=== PATIENT | male | born 1965 | race Caucasian/White ===

== ENCOUNTER 2017-07-28 11:40 | Inpatient (IN) | payer OTHER ==
[~2017-07-28] VITALS: Ht 170.2 cm; Wt 73.2 kg
[~2017-07-28 11:40] MED LIST: BUPROPION XL150 MG PO; CLONAZEPAM1 MG PO; LITHIUM CARBON300 M1 PO; ZYPREXA5 MG PO
[2017-07-28] MEDS ORDERED: DIVALPROEX SOD500 MG PO (11:49)
[2017-07-28] MEDS ORDERED: BACTRIM DS TAB1 EACH PO (11:50)
[2017-07-28] MEDS ORDERED: ALLOPURINOL100 MG PO (14:50)
--- NOTE | 2017-07-28 14:55 | NUR ---
PT TO FLOOR VIA STRETCHER, ACCOMPANIED BY TSERING, NURSING NET MAKING SUPERVISOR, AND MOTHER ALYSSA. PT ALERT, ORIENTED X 4. REINFORCED THE NEED FOR PT TO CALL FOR ASSISTANCE PRIOR TO ANY SELF TRANSFER ATTEMPTS. PT AGREED. BED ALARM ON.
[2017-07-28] MEDS ORDERED: DEPAKOTE500 MG PO (15:41)
--- NOTE | 2017-07-28 15:45 | NUR ---
PER REPORT FROM ANDREW, EMERGENCY DEPARTMENT RN, PT PULLED OUT LEFT WRIST FIELD START IV IN EMERGENCY DEPARTMENT.
--- NOTE | 2017-07-28 17:21 | EKG ---
[facility] [address] [facility] [address] [place] [address] Signed Sinus tachycardia Left anterior fascicular block Cannot rule out Inferior infarct (masked by fascicular block?) , age undetermined Abnormal ECG No previous ECGs available Confirmed by ROBEL PUGH MD ([id number]) on 07/28/2017 5:21:49 PM Electronically Signed By: ROBEL PUGH MD 07/28/17 1721 PATIENT NAME: ZANDER TEE SANDY Electrocardiogram DATE OF : 61 PHYSICIAN: ROBEL PUGH MD REPORT #: [id number] REPORT IS CONFIDENTIAL AND NOT TO BE RELEASED WITHOUT AUTHORIZATION
--- NOTE | 2017-07-28 17:25 | NUR ---
2 PERSON ASSIST WITH FWW AND GATE BELT TO BSC. PATIENT VERY SHAKY. PATIENT BACK TO BED WITH BED ALARM ON. CALL BUTTON IN REACH. FRESH ICE WATER GIVEN.
--- NOTE | 2017-07-28 17:39 | NUR ---
PT UP TO BEDSIDE COMMODE WITH 2 PERSON ASSIST. PT VERY SHAKY, UNSTEADY, AND REQUIRED MULTIPLE VERBAL CUES TO TRANSFER SAFELY. PT THEN BACK TO BED WITH 2 PERSON ASSIST USING GAIT BELT. BED ALARM ON.
--- NOTE | 2017-07-28 18:16 | NUR ---
PT SHAKING AT REST, WORSENS WITH ACTIVITY. NOTIFIED DR. PUGH OF THIS, CHECKED PT'S BLOOD SUGAR PER DR. PUGH, BG WAS 90. PT HAD EATEN 100% OF DINNER APROXIMATELY [address] PUGH OF THIS. WILL CONTINUE TO MONITOR PT.
--- NOTE | 2017-07-28 19:00 | NUR ---
BEDSIDE SHIFT REPORT RECEIVED FROM EVON RON. PT IS RESTING IN BED, BED ALARM ON. REINOSO IN PLACE, DRAINING FREELY, PT REMINDED NOT TO PULL ON TUBING. PT'S SISTER AT BEDSIDE, WILL CONTINUE TO MONITOR.
--- NOTE | 2017-07-28 19:36 | NUR ---
NOTIFIED BY EVON SANTANA THAT PT IS HAVING LARGE AMOUNTS OF EMESIS, AND HAS A TEMPERATURE OF 102.1. NOTIFIED DR. PUGH, ASKED FOR ORDER FOR ACETAMINOPHEN 650 MG PA X 1. RECIEVED VERBAL ORDER FOR ACETAMINOPHEN 650 MG PA X 1. NOTIFIED PEDRO TRIPP RN OF NEW ORDER, THAT IS AWAITING VERRIFICATION BY PHARMACY.
--- NOTE | 2017-07-28 19:40 | NUR ---
PT STARTED HAVING EMESIS, BEDDING CHANGED, PRN IV ZOFRAN ADMINISTERED. PT ALSO FOUND TO HAVE TEMPERATURE OF 102.1, TYLENOL SUPPOSITORY ADMINISTERED. PT APPEARS CONFUSED, BED ALARM ON FOR SAFETY. MD AWARE OF PT'S CONDITION.
--- NOTE | 2017-07-28 21:25 | NUR ---
ASSESSMENT COMPLETED. PT ALERT/ORIENTED AT THIS TIME, IS NO LONGER SHAKY LIKE EARLIER. DENIES PAIN AND NAUSEA. LUNGS CLEAR, RA. HR REGULAR. BOWEL TONES ACTIVE. REINOSO IN PLACE DRAINING FREELY. IV PATENT, INFUSING WNL. PT HAS SCATTERED ABRASIONS TO HEAD FROM PREVIOUS FALL AT HOME. PT RECENTLY HAD INGROWN TOENAILS REMOVED, PLACED BANDAIDS ON GREAT TOES, PER PT REQUEST. PT HAS BEEN INTERMITTENTLY CONFUSED AND ATTEMPTED TO EXIT BED. SEIZURE PADS PLACED ON SIDE RAILS TO PROTECT PT'S HEAD, BED ALARM IS ON FOR SAFETY. PT IN VIEW OF NURSES' STATION. WILL CONTINUE TO MONITOR.
--- NOTE | 2017-07-28 21:40 | NUR ---
RECHECKED PT'S TEMP: REAMINS AT 102.1, NOTIFIED DR. PUGH, SHE STATED TO WAIT ON GIVING ANY ADDITIONAL TYLENOL AT THIS TIME. PLACED ICE PACKS BEHIND PT'S NECK AND UNDER ARMS, WILL CONTINUE TO MONITOR.
--- NOTE | 2017-07-28 23:55 | NUR ---
PT SLEEPING, NO APPARENT DISTRESS. RR:20, RESPIRATIONS EVEN AND UNLABORED. BED ALARM ON, WILL CONTINUE TO MONITOR.
--- NOTE | 2017-07-29 03:34 | NUR ---
PT AWAKE, APPEARS SHAKY AGAIN. CHECKED TEMPERATURE: 100.1, PRN PO TYLENOL ADMINISTERED. ASSESSMENT COMPLETED. PT REMAINS ORIENTED X4. DENIES PAIN AND NAUSEA. LUNGS REMAINS CLEAR, HR REGULAR, BOWEL TONES ACTIVE. SEIZURE PADS AND BED ALARM ON FOR SAFETY. WILL CONTINUE TO MONITOR.
--- NOTE | 2017-07-29 05:16 | NUR ---
PT SLEPT MAJORITY OF SHIFT. INTERMITTENTLY CONFUSED, OTHER TIMES IS A/O X4. SHAKY AT TIMES. FEVER OFF/ON, PRN TYLENOL ADMINISTERED. SCATTERED ABRASIONS ON HEAD. REINOSO IN PLACE, DRAINING FREELY. IV PATENT, D5 1/2NS @125ML/HR. IV ABX: CLINDAMYCIN AND ROCEPHIN. PT IS IMPULSIVE AND UNSTEADY ON FEET, 2-PA. BED ALARM AND SEIZURE PADS ON BED FOR SAFETY.
--- NOTE | 2017-07-29 07:00 | NUR ---
BEDSIDE HANDOFF REPORT RECEIVED FROM LAP RUNNER RN. PT RESTING IN BED. PT DENIES NEEDS AT THIS TIME.
--- NOTE | 2017-07-29 07:31 | NUR ---
SISTER CALL FOR PT UPDATE. RECEIVED VERBAL OKAY FROM PT TO PROVIDE UPDATE. UPDATE PROVIDED ON FEVERS OVER NIGHT AND ONGOING CONFUSION.
--- NOTE | 2017-07-29 08:45 | NUR ---
PT RESTING IN BED. PT SLIGHTLY CONFUSED, SLOW TO RESPOND, SPPECH INAPPROPRIATE TO CONVERSATION AT TIMES. PT ON ROOM AIR. LUNG SOUNDS CLEAR. IV FLUIDS INFUSING TO R AC AT 125 ML/HR. PT DENIES PAIN. PT CONCERN FOR CONSTIPATIONS, DISCUSSED MEDICATIONS. PT ASSISTED WITH ORDERING BREAKFAST. PT DENIES OTHER NEEDS AT THIS TIME.
--- NOTE | 2017-07-29 09:36 | NUR ---
MED REC COMPLETE WITH MEDICATION REFILL HISTORY.
--- NOTE | 2017-07-29 10:00 | NUR ---
PT VERY RECEPTIVE TO VISIT BUT NOT PRAYER, SAID HE HAD ALREADY SAID HIS PRAYER. VERY SOFT SPOKEN. SAID HIS MU-ISM BEEN AROUND SINCE LATE 900'S
--- NOTE | 2017-07-29 10:34 | NUR ---
Patient had breakfast eating most of his meal, he also performed the ADLs of brushing his teeth and face washing. When entering the room at 930 for medication administration noticed patient was extremely shaky. Patient complained of being cold. Offered heated blankets for the patient. After medications were done vital signs were taken and patients was running a fever of 99.6. Patients vitals were slightly elevated. Will follow up.
--- NOTE | 2017-07-29 10:40 | NUR ---
PT WITH FEVER 102.2, GIVEN TYLENOL. NOTIFIED. VERBAL ORDER TO REPEAT BLOOD CULTURES IF PT SPIKES ANOTHER TEMP.
--- NOTE | 2017-07-29 12:30 | NUR ---
PT RESTING IN BED. PT DENIES PAIN. ON ROOM AIR, LUNG SOUNDS CLEAR. PT TEMP IMPROVING, PT FEELS LESS FEVERISH. IV FLUIDS INFUSING. PT MAX ASSIST X2 TO STAND PIVOT TO BED. REINOSO CATH IN PLACE, DRAINING CLEAR YELLOW URINE. FAMILY AT BEDSIDE, DENIES OTHER NEEDS AT THIS TIME.
--- NOTE | 2017-07-29 15:07 | NUR ---
PT WITH SLIGHT TEMP 100.5, BLOOD PRESSURE 96/63. MD NOTIFIED, ORDERED BLOOD CULTURES DISCUSSED EARLIER. PT RESTING IN BED. PT DENIES NEEDS AT THIS TIME.
--- NOTE | 2017-07-29 17:13 | NUR ---
PT RESTING IN BED. PT DENIES PAIN. PT ON ROOM AIR, LUNG SOUNDS CLEAR. IV FLUIDS INFUSING NS AT 150 ML/HR. PT DENIES NAUSEA. PT WITH MULTIPLE STOOLS THIS EVENING, PLAN TO HOLD MIRALAX. PT WITH REINOSO CATH IN PLACE, DRAINING YELLOW URINE. PT BEING TO CLEAR, CONVERSATION MORE APPROPRIATE TO SITUATION. PT AFEBRILE AT THIS TIME. PT DENIES NEEDS.
--- NOTE | 2017-07-29 18:30 | NUR ---
PT CONTINUES TO BE SLIGHTLY CONFUSED AT TIMES, BED ALARM ON. PT ON ROOM AIR, LUNG SOUNDS CLEAR. PT TOLERATING REGULAR DIET, POOR APPETITE. PT FELT CONSTIPATED THIS AM, RECEIVED MIRALAX, PT NOW WITH MULTIPLE STOOLS THIS EVENING, HOLD MIRALAX. PT WITH FEVER THIS AM, RECEIVED TYLENOL X1, SLIGHT TEMP AGAIN THIS AFTERNOON, REPEAT BLOOD CULTURES DRAWN. PT WITH NS AT 150 ML/HR. PT RECEIVING IV ROCEPHIN AND CLINDAMYCIN. PT UP WITH 2 PA TO BSC/CHAIR. PT WITH REINOSO IN PLACE, QS.
--- NOTE | 2017-07-29 20:00 | NUR ---
RECEIVED REPORT AT 1900. FOUND PT IN BED SLEEPING.
--- NOTE | 2017-07-29 20:53 | NUR ---
PT WAS SHAKY AND HAD TEMPERATURE OF 100.2. ADMINISTERED 2 TABS PO TYLENOL.
--- NOTE | 2017-07-29 22:00 | NUR ---
PT HAD A TEMP OF 100.2, PT ALSO HAS 100-110 HR. TYLENOL PO WAS GIVEN PER ORDER. PT HAD A BM X1 THIS SHIFT, IT WAS RUNNY AND GREEN IN COLOR. PT IS VERY WEAK WHEN TRYING TO STAND. BED ALARM IS ON SINCE PT IS NOT CALLING WHEN WANTING TO GET OUT OF BED. ALL LOBES ARE CLEAR, ABD BOWEL SOUNDS ARE NORMALLY ACTIVE, NO EDEMA NOTED.
--- NOTE | 2017-07-30 00:21 | NUR ---
PT IS SLEEPING AT THIS TIME.
--- NOTE | 2017-07-30 02:30 | NUR ---
ALL LOBES ARE CLEAR. PT IS STILL WEAK. PT IS SLEEPING AGAIN. TEMP WAS 99.5. OTHER V/S ARE WDL. NO NEW PROBLEMS NOTED.
--- NOTE | 2017-07-30 06:10 | NUR ---
AT START OF SHIFT PT HAD A TEMP OF 100.2, PRN TYLENOL WAS GIVEN, AT 0200 TEMP WAS 99.5, AT 0500 TEMP WAS 100.3 AND ANOTHER PRN TYLENOL WAS GIVEN. ALL OTHER V/S ARE WDL. PT OVERALL IS VERY WEAK. PT HAS RUNNY GREEN BM'S X3 THIS SHIFT. ALL LOBES ARE CLEAR ABD SOUNDS ARE PRESENT. NO PERIPHERAL EDEMA NOTED. PT AT TIMES IS ORIENTED X4 OTHER TIMES PT ANSWERS TO QUESTIONS THAT ARE NOT AT ALL THE SUBJECT MATTER.
--- NOTE | 2017-07-30 07:45 | NUR ---
stool sample collected due to increase of loose stool this am and last night
--- NOTE | 2017-07-30 08:01 | NUR ---
rounded with dr. lee. changed bilateral toe bandaids. assessment complete with student jesus.
--- NOTE | 2017-07-30 09:26 | NUR ---
Patient exam was completed with RN. No new abnormalities were noted. Patient has increased alertness compared to yesterday. Appetite has also increased, patient ate about 90% of his breakfast. There were no complaints of pain at this time. Patient is still having diarrhea, compared to yesterday the movements are less frequent but instead of being brown the stool movements are now dark green. Patient also has less difficulty standing but at times will not wait for assistance before attempting to get up.
--- NOTE | 2017-07-30 12:30 | NUR ---
PATIENT REPORTED BODY ACHES AND SHACKING. REQUESTING TYENOL. VITALS TAKEN. ASSISTED FROM CHAIR TO BED. ONLY EATING 25 PERCENT OF LUNCH. TALKING A LOT ABOUT THE GOVERMENT AND NEWS. PARTIENT STILL REDIRECTS.
--- NOTE | 2017-07-30 12:52 | NUR ---
PATIENT WALKED ONE LAP AROUND MED SURG. WITH PHYSICAL THERAPY AND DESI THE STUDENT FOLLOWED THEM WITH A WHEELCHAIR THIS MORNING.
--- NOTE | 2017-07-30 15:40 | NUR ---
vanco continues. patient shaking has improved. temp improved. patient requesting yogurt. will continue to monitor.
--- NOTE | 2017-07-30 16:23 | NUR ---
PATIENT ASSISTED TO THE SHOWER WITH CUTTER OPERATOR. TOLERATING WELL.
--- NOTE | 2017-07-30 16:41 | NUR ---
VITALS TAKEN. TEMP IMPROVED. IS EDUCATION GIVEN. PATIENT TOLERATED SHOWER WELL. NO PAIN AT THIS TIME. NO SHAKING AT THIS TIME.
--- NOTE | 2017-07-30 18:40 | NUR ---
PATIENT DOING WELL THIS MORNING. AMBULATED IN LARSEN. TOLERATED PT. EATING WELL. THIS AFTERNOON PATIENT HAD INCREASE IN TEMP. TYENOL AND ICE PACKS GIVEN. ADDED VANCO TO ANTIBIOTIC REGIMENT. PATIENT TOLERATED WELL. IV FLUIDS CONTINUE TO RUN AT 150MLS. CALLING APPROPRIATLY. SLOW TO RESPOND AT TIMES.
--- NOTE | 2017-07-30 19:00 | NUR ---
KEMAR D/C'D PER NEW ORDER FROM DR. RIOJAS. UA SENT. NEW ORDER FOR CHEST X-RAY. BED ALARM PLACED ON PATIENT.
--- NOTE | 2017-07-30 19:17 | NUR ---
NEEDED HELP WITH SHOWER THIS AFTERNOON.
--- NOTE | 2017-07-30 20:00 | NUR ---
RECEIVED REPORT AT 1900. FOUND PT IN BED ALERT AND ORIENTED. TEMP AT THAT TIME WAS 99.1. PT DENIED PAIN AND ANY OTHER ISSUES.
--- NOTE | 2017-07-30 21:29 | NUR ---
NURSE NOTIFIED RE HEAVENP.
--- NOTE | 2017-07-30 21:41 | NUR ---
WAS INFORMED BY NAILA WAY, THAT PT'S TEMPERATURE WAS 102. DR. RIOJAS WAS AT HIS DESK, INFORMED HIM OF TEMPERATURE AND OF LAST DOSE OF TYLENOL. NEW ORDERS RECEIVED TO ADMINISTER ONE TIME DOSE OF 325MG PO TYLENOL. ADMINISTERED MEDICATION AND INFORMED PT'S PRIMARY RN, JAN. DR. RIOJAS IN TO ASSESS PT AT THIS TIME.
--- NOTE | 2017-07-30 22:00 | NUR ---
AT 2100 TEMP WAS 102.0. MD RIOJAS WAS MADE AWARE TYLENOL PRN AND A ONE TIME DOSE OF TYLENOL PO WAS GIVEN. CHEST X-RAY WAS DONE AFTER START OF SHIFT. OTHER V/S WERE WDL. BILATERALLY LOWERE LOBES ARE DIMINISHED. UPPER LOBES ARE CLEAR, NORMAL BOWEL TONES ARE PRESENT, NO PERIPHERAL EDEMA NOTED. PT HAD NO BM SINCE START OF THIS SHIFT.
--- NOTE | 2017-07-30 22:15 | NUR ---
PATIENT CALLED. ASSISTED STANDING UP BY THE BED TO VOID IN THE URINAL.
--- NOTE | 2017-07-30 22:30 | NUR ---
NEW ABX WERE ORDERED BY MD RIOJAS, INFLUENZA NASAL SWAB WAS DONE AT SENT TO LAB AT 2225. PT AT THIS TIME IS SLEEPING. WILL CONTINUE TO MONITOR.
--- NOTE | 2017-07-30 23:00 | NUR ---
PT VOIDED OVER 400ML
--- NOTE | 2017-07-30 23:31 | NUR ---
TEMP AT THIS TIME IS 98.2. BED ALARM IS BACK ON. PT TRIED TO GET OUT OF BED AGAIN.
--- NOTE | 2017-07-30 23:57 | NUR ---
PT IS SLEEPING AT THIS TIME.
--- NOTE | 2017-07-31 02:32 | NUR ---
PT IS AFEBRILE AT THIS TIME. ALL LOBES ARE CLEAR BUT LOWER LOBES ARE DIMINISHED. NO NEW ISSUES NOTED AT THIS TIME. PT IS BACK IN BED SLEEPING
--- NOTE | 2017-07-31 02:52 | NUR ---
PT HAS NOT VOIDED BETWEEN [id number]. PT STATED THAT HE HAS NO URGE. BLADDER SCAN SHOWED 506ML OF URINE PRESENT. PT AT THIS TIME IS TRYING TO VOID AGAIN. WILL CALL MD RIOJAS IF HE IS UNABLE TO VOID.
--- NOTE | 2017-07-31 03:14 | NUR ---
PT JUST VOIDED 100ML. WILL TRY AGAIN IN AN HOUR.
--- NOTE | 2017-07-31 03:56 | NUR ---
PT VOIDED ANOTHER 200ML. BMX1 WELL. PT IS BACK IN BED.
--- NOTE | 2017-07-31 04:27 | NUR ---
PT IS STILL AFEBRILE, 98.6. HOWEVER, PT IS VISIBLY SHAKING AGAIN. I GAVE HIM A WARM BLANKET.
--- NOTE | 2017-07-31 04:59 | NUR ---
PATIENT CALLED. ASSISTED USING THE URINAL. PATIENT IS SHAKING. WARM BLANKET GIVEN.
--- NOTE | 2017-07-31 05:42 | NUR ---
AT START OF SHIFT TEMP WAS 99. WITHIN A COUPLE OF HOURS HIS TEMP WAS 102.0 EVEN THOUGH PO TYLENOL WAS GIVEN. MD RIOJAS WAS MADE AWARE. CHEST X-RAY WAS DONE. ABX WERE CHANGED AND GIVEN. AT 0200 TEMP WAS 98.5 AND PT HAS REMAINED AFEBRILE SO FAR. REINOSO WAS PULLED JUST PRIOR TO 1900. PT HAD SOME DIFFICULTY VOIDING AT FIRST BUT THIS SEEMS TO NO LONGER BE A PROBLEM. OTHER V/S ARE WDL. PT AT TIMES STILL GETS TREMORS EVEN WHEN AFEBRILE. WARM BLANKETS WERE PROVIDED WHICH SEEMS TO HELP. PT BM'S 3 THIS SHIFT SO FAR. COLOR IS GREEN AND CONSISTENCY IS LOOSE. ALL LOBES ARE CLEAR BUT LOWER LOBES ARE DIMINISHED. NO PERIPHERAL EDEMA NOTED, NO COUGH OR DRAINAGE FROM NOSE NOTED.
--- NOTE | 2017-07-31 06:00 | NUR ---
PT HAS NOT BEEN ABLE TO STOP SHAKING EVEN THOUGH HE IS AFEBRILE. I TOOK HIS BG AND IS WAS 59. 300ML OF ORNAGE JUICE AND TWO PACKS OF LICO CRACKERS WERE GIVEN. WILL RECHECK IN 15MIN AND NOTIFY MD RIOJAS.
--- NOTE | 2017-07-31 06:21 | NUR ---
BG NOW IS 95. CALLING MD RIOJAS NOW.
--- NOTE | 2017-07-31 06:24 | NUR ---
MD RIOJAS AWARE. NO NEW ORDERS RECEIVED.
--- NOTE | 2017-07-31 07:38 | NUR ---
REPORT RECEIVED FROM EVON MONTOYA. PT AWAKE AND USING THE BEDSIDE COMMODE. ONE IV RUNNING AND ONE SL.
--- NOTE | 2017-07-31 10:06 | NUR ---
PT UP TO BEDSIDE COMMODE. REMAINS WEAK AND UNSTEADY. HAD SMALL AMT SOFT STOOL. FAMILY IN ROOM.
--- NOTE | 2017-07-31 10:20 | NUR ---
PT IS SITTING UP ON BED WITH CALL LIGHT IN REACH. PT DID NOT NEED ANYTHING ELSE AT THE MOMENT
--- NOTE | 2017-07-31 11:46 | NUR ---
PT READING A BOOK AND HIS IV REPEATEDLY BEEPING. PT STATES IT IS DRIVING HIM CRAZY US.
--- NOTE | 2017-07-31 13:28 | NUR ---
MOVED PT TO ROOM 109 VIA BED. PT TOLERATED WELL. WILL INFORM FAMILY THEY COME IN TO VISIT. WATER PUMPER IN ROOM TO TRY TO START NEW IV.
--- NOTE | 2017-07-31 15:54 | NUR ---
PT BACK FROM CT REATTCHED TO IVF. PT READING A BOOK AND DENIES CONCERNS.
--- NOTE | 2017-07-31 17:53 | NUR ---
PT HAD LOW GRADE FEVER OF 101 STILL UNKNOWN ORIGIN. CHEST AND ABDOMEN CT BENIGN. USING BEDSIDE COMMODE FOR CONTINUED WEAKNESS. IV STARTED IN LEFT THUMB.
--- NOTE | 2017-07-31 20:00 | NUR ---
RECEIVED REPORT AT 1900. FOUND PT IN BED WATCHING TV. PT STATED THAT HE WAS FEELING GOOD.
--- NOTE | 2017-07-31 22:04 | NUR ---
V/S ARE WDL, PT IS AFEBRILE AT THIS TIME, ALL LOBES ARE CLEAR, NO PERIPHERAL EDEMA NOTED, PT IS NOT SHAKING, STRENGTH IS IMPROVING WELL. PT IS SLEEPING AT THIS TIME.
--- NOTE | 2017-07-31 23:46 | NUR ---
PATIENT GOT UP, BED ALARM WENT OFF. ASSISTED TO USE THE BEDSIDE COMMODE. PATIENT IS BACK IN BED. CALL LIGHT WITHIN REACH. REMINDED TO USE THE CALL LIGHT.
--- NOTE | 2017-08-01 00:06 | NUR ---
PT IS SLEEPING AT THIS TIME.
--- NOTE | 2017-08-01 01:07 | NUR ---
ASSISTED PT TO BATHROOM. PT THEN BECAME SHAKEY AGAIN. I SPOT CHECKED HIS BG AND IT WAS 95.
--- NOTE | 2017-08-01 02:07 | NUR ---
PATIENT CALLED. ASSISTED TO USE THE BEDSIDE COMMODE. PATIENT IS BACK IN BED. CALL LIGHT WITHIN REACH. BED ALARM ON.
--- NOTE | 2017-08-01 03:48 | NUR ---
PATIENT CALLED TO USE THE BEDSIDE COMMODE. PATIENT IS BACK IN BED. CALL LIGHT WITHIN REACH. BED ALARM ON.
--- NOTE | 2017-08-01 03:56 | NUR ---
PT IS RESTING IN BED, ASSESSMENT HAS SHOWED NO CHANGES SINCE START OF SHIFT.
--- NOTE | 2017-08-01 05:08 | NUR ---
PT SO FAR HAS REMAINED AFEBRILE. PT HAD BM'S X2 AND V/S ARE WDL. PT IS ABLE TO WALK TO BATHROOM AND BACK TO BED. PT IS ORIENTED X4, ALL LOBES ARE CLEAR, NO EDEMA NOTED. PT DENIES PAIN. PT SLEPT MOST OF THE NIGHT. NO NEW ISSUES NOTED SO FAR.
--- NOTE | 2017-08-01 05:51 | NUR ---
NURSE NOTIFIED RE HEAVENP.
--- NOTE | 2017-08-01 05:55 | NUR ---
0600 V/S SHOWED A TEMP OF 99.3. 650MG OF PRN TYLENOL WAS GIVEN.
--- NOTE | 2017-08-01 06:23 | NUR ---
LAB MISHANDLED STOOL CULTURE COLLECTED LAST NIGHT. A NOEW STOOL SAMPLE IS NEEDED. CONTAINER IN BATHROOM AND SO IS HAT.
--- NOTE | 2017-08-01 06:43 | NUR ---
SBP WAS 98 WITH MACHINE. MANNUAL BP WAS 92/61. MD RIOJAS CALLED.
--- NOTE | 2017-08-01 07:21 | NUR ---
REPORT RECIEVED FROM EVON DONALDSON. PT SLEPT MOST OF NIGHT. UP TO RESTROOM SEVERAL TIMES. NEED MORE STOOL FOR SAMPLE. PT SLEEPING ATT.
--- NOTE | 2017-08-01 08:15 | NUR ---
AM CARE. FRESH ICE WATER. PICKED UP ROOM. CALL LIGHT IN REACH.
--- NOTE | 2017-08-01 09:48 | NUR ---
PT AWAKE IN BED DID VITELS. FRESH ICE WATER. PT HAS CALL LIGHT IN REACH.
--- NOTE | 2017-08-01 11:42 | NUR ---
PT UP IN SHOWER WITH SEQUENCING MACHINE OPERATOR. HAD ANOTHER BM SENT SAMPLE TO THE LAB.
--- NOTE | 2017-08-01 13:07 | NUR ---
SL PT AND GAVE MORE JUICE AND ICE WATER. PT HAPPY TO NOT BE "HOOKED UP". PT MOTHER CAME OUT AND SAID PT WAS COLD. ASSESSED TEMP, BLOOD SUGAR AND GAVE WARM BLANKET. PT AFEBRILE AND BS WAS 120.
--- NOTE | 2017-08-01 14:11 | NUR ---
PT AWAKE IN CHAIR. HELPED TO BR AND BACK TO BED. GOT HIM SOME APPLE JUICE.
--- NOTE | 2017-08-01 15:46 | NUR ---
PT CALLED FOR A SOUR ACIDY STOMACH. CALLED DR RIOJAS AND HE ORDERED MAALOX. ADMINISTERED TO PT AND ASSISTED TO CHAIR FOR AWHILE.
--- NOTE | 2017-08-01 17:24 | NUR ---
PT HAD A SLIGHT FEVER AGAIN AT DINNER. ADMINISTERED TYLENOL. PT SL AND ON RA. UP TO RESTROOM WITH SBA AND FWW FREQUENTLY. ANOTHER STOOL SAMPLE SENT. WORKED WITH PHYS. THER.
--- NOTE | 2017-08-01 17:49 | NUR ---
PT AWAKE IN CHAIR. FRESH WATER. TOOK TO THE BATHROOM.
--- NOTE | 2017-08-01 19:52 | NUR ---
REPORT RECVD FROM MAX BARNARD. PT IN ROOM, READING IN BED. PT HAS BEEN UP TO BATHROOM WITH FWW AND STANDBY ASSIST. NO FURTHER NEEDS AT THIS TIME, CALL LIGHT IN REACH.
--- NOTE | 2017-08-01 20:28 | NUR ---
USED CALL LIGHT REQUESTING TO USE THE BATHROOM. SBA. PLEASANT AND COOPERATIVE.
--- NOTE | 2017-08-01 20:39 | NUR ---
IN TO SEE PT, PT AWAKE WATCHING TV. ASSESSMENT COMPLETE AND PM MEDICATIONS GIVEN. TEMP OF 99.0 NOTED, WILL MONITOR. SL IN R THUMB, FLUSHES WELL. NO FURTHER NEEDS AT THIS TIME. CALL LIGHT IN REACH.
--- NOTE | 2017-08-01 23:49 | NUR ---
IN TO CHECK ON PT, PT APPEARS TO BE SLEEPING. RR EVEN AND UNLABORED. NO APPARENT DISTRESS NOTED. CALL LIGHT IN REACH.
--- NOTE | 2017-08-02 00:42 | NUR ---
IN TO CHECK ON PT, PT SNORING SOFTLY. RR EVEN AND UNLABORED. NO APPARENT DISTRESS NOTED. CALL LIGHT IN REACH.
--- NOTE | 2017-08-02 02:31 | NUR ---
BED ALARM SOUNDING, IN TO CHECK ON PT. PT IN BED WITH LEGS MOVING OUT OF COVER. PT STATES HE IS HAVING A DREAM. ASSESSMENT COMPLETE. NO FURTHER NEEDS AT THIS TIME. BED ALARM ON, CALL LIGHT IN REACH.
--- NOTE | 2017-08-02 02:56 | NUR ---
BED ALARM SOUNDING, RN IN TO SEE PT. WHEN RN ARRIVED PT UP WITHOUT ASSIST AMBULATING TO BATHROOM. ASSISTED PT TO BATHROOM WITH WALKER. PT ASSISTED BACK TO BED. RENFORCED THE NEED TO CALL FOR HELP AND WAIT FOR STAFF BEFORE GETTING OOB. PT AGREES. WARM BLANKET GIVEN. BED ALARM ON, CALL LIGHT IN REACH.
--- NOTE | 2017-08-02 04:02 | NUR ---
PT CALLED, REQUESTING WARM BLANKET. TEMP CHECKED, 98.1 ORAL. BLANKET GIVEN. NO FURTHER NEEDS AT THIS TIME. CALL LIGHT IN REACH.
--- NOTE | 2017-08-02 05:05 | NUR ---
PT HAD AN UNEVENTFUL SHIFT, SLEPT WELL. PT SL AND ON RA. UP TO BATHROOM WITH STANDBY ASSIST WITH FWW. PT AFIBRILE. LIQUID BM NOTED ON SHIFT. BED ALARM IN PLACE.
--- NOTE | 2017-08-02 05:19 | NUR ---
ASSISTED PATIENT TO THE BATHROOM AND BACK TO BED.
--- NOTE | 2017-08-02 07:56 | NUR ---
PT AWAKE LYING IN BED. C/O PAIN ON HEEL OF RIGHT FOOT. NO OBVIOUS SIGNS OF BREAKDOWN. BLANCHABLE SKIN. ENCOURAGED PATIENT TO SIT UP IN CHAIR TO RELEIVE PRESSURE ON HEELS. BREAKFAST DELIVERED NOW. TOOK SCHEDULED MEDICATION. RIGHT THUMB IV S/L.
--- NOTE | 2017-08-02 08:31 | NUR ---
PATIENT IS EATING BREAKFAST UP IN CHAIR.
--- NOTE | 2017-08-02 13:57 | NUR ---
PT ALERT, SOMEWHAT ORIENTED. MOST OF CONVERSATION SEEMED ON [employer]. SEVERAL TIMES THOUGH HE SEEMED TO LOOSE TRACK SOME. PT DID REQUEST PRAYER, WILL CONTINIE TO FOLLOW
--- NOTE | 2017-08-02 16:16 | NUR ---
FAXED CHART NOTES TO [facility] THIS AM AFTER SPEAKING WITH THE PT ABOUT HAVING TO HAVE SOME EXTENDED REHAB. PT STATES THAT WOULD BE FINE FOR HIM TO DO. HE THINKS [facility] IS GOOD IT [place], SO FAXED FACESHEET, ER NOTES, H AND P, PROG NOTES, MEDS, IMAGING, AND LABS TO THEM. 1105 RECIEVED PHONE CALL REQUESTING LIST OF MEDICATIONS PT WILL BE DC ON. CALLED DR RIOJAS AND HE SAID THE ONES HE IS ON AT HOME. SO FAXED LIST TO T. 1300 TECIEVED A CALL THAT THEY ACCEPTED PT NOW THEY HAVE TO GET INSURANCE AUTH FOR SNF. SO AWAITING AUTH.
--- NOTE | 2017-08-02 16:24 | NUR ---
HELPED PT BACK TO BED FROM BRUSHING HIS TEETH, FILLED HIS ICE WATER, CALL LIGHT IN PLACE
[2017-08-02] MEDS ORDERED: CLONAZEPAM1 MG PO (16:43)
[2017-08-02] MEDS ORDERED: ZYPREXA5 MG PO (16:44)
[2017-08-02] MEDS ORDERED: LOPERAMIDE2 MG PO (16:44)
[2017-08-02] MEDS ORDERED: CULTURELLE1 EAC1 PO (16:44)
--- NOTE | 2017-08-02 16:52 | NUR ---
HELPED PT TO BATHROOM. HE DID FINE. CALL LIGHT CLIPPED TO HIS DRAW SHEET BECAUSE HE LIKES TO SEE IT AND [id number] ITS THERE.
--- NOTE | 2017-08-02 18:15 | NUR ---
SBA TO BATHROOM. BED ALARM. CAN BE IMPULSIVE. DIARRHEA. WORKING WITH PHYSICAL THERAPY. NO MAJOR CHANGES TODAY. APPETITE [employer]IR.
--- NOTE | 2017-08-02 19:15 | NUR ---
REPORT RECVD FROM OTIS BARNARD. PT AWAKE WATCHING TV. ASSISTED PT UP TO BATHROOM WITH FWW. ASSISTED BACK TO BED. PT STEADY ON FEET. NO FURTHER NEEDS AT THIS TIME. BED ALARM ON, CALL LIGHT IN REACH.
--- NOTE | 2017-08-02 20:25 | NUR ---
IN TO SEE PT, PT AWAKE. ASSISTED UP TO BATHROOM STANDBY WITH FWW, PT TOLERATED WELL. ASSESSMENT COMPLETE AND PM MEDICATION GIVEN. NO FURTHER NEEDS AT THIS TIME. BED ALARM ON AND CALL LIGHT IN REACH.
--- NOTE | 2017-08-02 23:19 | NUR ---
IN TO CHECK ON PT, PT IN BED APPEARS TO BE SLEEPING. RR EVEN AND UNLABORED. NO APPARENT DISTRESS NOTED. CALL LIGHT IN PLACE.
--- NOTE | 2017-08-02 23:55 | NUR ---
PT CALLED REQUESTING ASSISTANCE TO BATHROOM. ASSISTED PT TO BATHROOM AND BACK TO BED. PT TOLERATED WELL. BED ALARM ON, CALL LIGHT IN REACH.
--- NOTE | 2017-08-03 02:15 | NUR ---
IN TO CHECK ON PT, PT LYING ON BACK IN BED. APPEARS TO BE SLEEPING. RR EVEN AND UNLABORED. NO APPARENT DISTRESS NOTED. BED ALARM ON, CALL LIGHT IN REACH.
--- NOTE | 2017-08-03 05:02 | NUR ---
PT HAS HAD UNEVENTFUL SHIFT, RESTED WELL. 1 PERSON STANDBY ASSIST WITH FWW. DIARRHEA NOTED ON SHIFT, MD AWARE. 24 G SL IN R THUMB, DIFFICULT TO FLUSH. PT HAS BEEN AFIBRILE, VITALS STABLE. D/C TO WBT TODAY.
--- NOTE | 2017-08-03 08:22 | NUR ---
PT SITTING UP IN BED. NO COMPLAINTS AT THIS TIME. PT HAS BEEN UP TO TOILET AT SHIFT CHANGE THIS MORNING. SBA TO BR. TOOK SCHEDULED MEDS ORDERED. PT WATCHING TELEVISION NOW. ATE 90% OF BREAKFAST. IV INFILTRATED. WILL SEE IF PT NEEDS NEW IV OR NOT.
--- NOTE | 2017-08-03 14:18 | NUR ---
PT WAS DRESSED AND SITTING IN CHAIR WAITING FOR DISCHARGE ORDERS. HE SEEMED PLEASED AND READY TO GO HOME. HE THANKED ME FOR COMING IN-IT APPEARED HIS FAMILY WAS THERE TO TAKE HIM HOME. I EXTENDED A BLESSING TO HIM
== END 2017-08-03 14:40 | DRG 564 ==
LOC: ED 11:40 → MS 14:06
PROVIDERS: ADMIT Internal Medicine
DX: T79.6XXA Traumatic ischemia of muscle, initial encounter (principal); G93.41 Metabolic encephalopathy; R65.11 Systemic inflammatory response syndrome (SIRS) of non-infectious origin with acute organ dysfunction; N17.9 Acute kidney failure, unspecified; K52.1 Toxic gastroenteritis and colitis; W19.XXXA Unspecified fall, initial encounter; T36.95XA Adverse effect of unspecified systemic antibiotic, initial encounter; D69.6 Thrombocytopenia, unspecified; F31.9 Bipolar disorder, unspecified; E79.0 Hyperuricemia without signs of inflammatory arthritis and tophaceous disease; E03.9 Hypothyroidism, unspecified
CPT/HCPCS: 36415; 51702; 51798; 70450; 71010; 71020; 71250; 74176; 80048; 80053; 80164; 81001; 82550; 83605; 85025; 85651; 86140; 87040; 87045; 87046; 87205; 87493; 87502; 93005; 93010; 96361; 96365; 97110; 97116; 97162; 97530; 99285; J0696; J1956; J2405; J3370; J7030; J7042

== ENCOUNTER 2019-11-02 08:24 | Emergency (ER) | payer OTHER ==
[~2019-11-02] VITALS: Ht 170.2 cm; Wt 82.1 kg
[~2019-11-02 08:24] MED LIST changes: +ALLOPURINOL100 MG PO; +BACTRIM DS TAB1 EACH PO; +CULTURELLE1 EAC1 PO; +DEPAKOTE500 MG PO; +DIVALPROEX SOD500 MG PO; +DULCOLAX STOOL100 M1 PO; +LOPERAMIDE2 MG PO
--- OUTSIDE RECORDS SUMMARY | 2019-11-02 08:28 | XMS ---
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 Dequan has no Care Guidelines for this patient. Karmen VISIT COUNT (12 MO.) 1 JOSE G Vega TOTAL 1 NOTE: Visits indicate total known visits. ED/C VISIT TRACKING (12 MO.) 11/02/2019 08:25 JOSE G Alexandra OR TYPE: Emergency COMPLAINT: - POSS STROKE SYMPTOMS INPATIENT VISIT TRACKING (12 MO.) No inpatient visits to display in this time frame [email or web address]
--- NOTE | 2019-11-02 23:44 | EKG ---
[facility] [address] [place] [address] Signed Normal sinus rhythm Left anterior fascicular block Abnormal ECG When compared with ECG of 01-DEC-2018 14:58, No significant change was found Confirmed by PERNELL RIOJAS MD ([id number]) on 11/02/2019 11:43:47 PM Electronically Signed By: PERNELL RIOJAS MD 11/02/19 2344 PATIENT NAME: RANDALZANDER Electrocardiogram DATE OF : 61 PHYSICIAN: PERNELL RIOJAS MD REPORT #: [id number] REPORT IS CONFIDENTIAL AND NOT TO BE RELEASED WITHOUT AUTHORIZATION
== END 2019-11-02 11:33 | disposition home or self-care (01) ==
LOC: ED 08:24
DX: G45.9 Transient cerebral ischemic attack, unspecified (principal); F31.9 Bipolar disorder, unspecified; Z88.8 Allergy status to other drugs, medicaments and biological substances; Z91.018 Allergy to other foods; Z79.899 Other long term (current) drug therapy
CPT/HCPCS: 70450; 80053; 84484; 85025; 93005; 93010; 93880; 99285-25

== ENCOUNTER 2021-12-02 16:51 | Emergency (ER) | payer OTHER ==
[~2021-12-02] VITALS: Ht 172.7 cm; Wt 76.2 kg
[~2021-12-02 16:51] MED LIST changes: +AMOXICILLIN500 MG PO
--- OUTSIDE RECORDS SUMMARY | 2021-12-02 16:54 | XMS ---
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 ERodolfo VISIT COUNT (12 MO.) 1 JOSE G Vega TOTAL 1 NOTE: Visits indicate total known visits. ED/UCC VISIT TRACKING (12 MO.) 12/02/2021 16:52 JOSE G Alexandra OR TYPE: Emergency COMPLAINT: - CONSTIPATION INPATIENT VISIT TRACKING (12 MO.) No inpatient visits to display in this time frame [email or web address]
[2021-12-02] MEDS ORDERED: MAGNESIUM CITR296 ML PO (18:22)
[2021-12-02] MEDS ORDERED: ONDANSETRON ODT8 MG PO (18:27)
== END 2021-12-02 18:40 | disposition home or self-care (01) ==
LOC: ED 16:51
DX: R10.9 Unspecified abdominal pain (principal); Z01.818 Encounter for other preprocedural examination; Z91.010 Allergy to peanuts; Z88.8 Allergy status to other drugs, medicaments and biological substances; Z79.899 Other long term (current) drug therapy
CPT/HCPCS: 74022; 99284-25; A9270

== ENCOUNTER 2021-12-03 05:40 | Day surgery (SDC) | payer OTHER ==
[~2021-12-03] VITALS: Ht 172.7 cm; Wt 76.4 kg
[~2021-12-03 05:40] MED LIST changes: +MAGNESIUM CITR296 ML PO; +ONDANSETRON ODT8 MG PO
--- NOTE | 2021-12-03 07:56 | NUR ---
12/03/21 0756 Angelique Everett 0752-PT TO PACU IN LL POSITION. DOES NOT RESPOND TO VERBAL OR TACTILE STIMULI. BREATHING EASY AND UNLABORED. SPO2 >95% ON 6 L O2 VIA SIMPLE MASK. 0755- PT CONTINUES TO SLEEP IN LL POSITION. BREATHING EASY AND UNLABORED. SPO2 >95% ON 6 L O2 VIA SIMPLE MASK. PT PASSING GAS.
--- NOTE | 2021-12-03 09:24 | OR ---
[facility] [address] [place], [place] [address] Signed DATE OF OPERATION: 12/03/2021 SURGEON: Sandy Arora MD PREOPERATIVE DIAGNOSES: 1. Paternal grandfather with colon cancer. 2. Minimal sigmoid diverticulosis. 3. Minimal internal hemorrhoids. 4. Intermittent episodic diarrhea. POSTOPERATIVE DIAGNOSES: 1. 4 mm polyp at 7 cm. 2. Minimal sigmoid diverticulosis. 3. Minimal internal hemorrhoids. PROCEDURE: Colonoscopy with hot biopsy. ESTIMATED BLOOD LOSS: None. INDICATIONS: Sandy is a 56-year-old gentleman asked to see me for followup colonoscopy. He underwent lower endoscopy with Dr. Igor Veronica in 2009. He had been anemic at that time. He had a little diverticulosis. We know his paternal grandfather had colon cancer. At one point, his lithium dosing had been high and it was causing diarrhea. The lithium has been discontinued. In 2014, I helped him with repeat lower endoscopy. He had minimal diverticulosis and minimal internal hemorrhoids at that time. He always recalls being wide-awake in 2009 during his endoscopies, and said it was quite a traumatic experience. He actually has a fairly significant medical history along with his medications and his allergies. As a result, we had used monitored anesthesia care for him in 2014. He said that worked out very well for him. He had been asked to follow up for colonoscopy. He says once in a while, he will have intermittent episodes of diarrhea. He cannot relate it anything specifically. He said maybe fatty meals. However, he does not have any significant gallbladder issues otherwise. They seem to be fairly minimal. We know that he has minimal internal hemorrhoids and minimal diverticulosis. Otherwise, he seems to be doing well. I gave him a pamphlet on colonoscopy in the office. He recalls the test quite readily. There is risk including, but not limited to gas bloating, crampy abdominal pain, bleeding, perforation requiring surgery, and missed diagnosis. We had reviewed this idea of monitored anesthesia care Electronically Signed By: SANDY ARORA MD 12/03/21 0924 PATIENT NAME: ZANDER TEE OPERATIVE REPORT DATE OF : 61 REPORT #: [id number] PHYSICIAN: SANDY ARORA MD PCP: MICHELLE ANTONIO PAC REPORT IS CONFIDENTIAL AND NOT TO BE RELEASED WITHOUT AUTHORIZATION [address] [address] Signed with propofol as stated above. He had expressed understanding and agreed that was a hooker decision for him. He had expressed understanding and wished to proceed. PROCEDURE NOTE: Sandy was taken into our endoscopy suite and placed in the left lateral decubitus position. He was given monitored anesthesia care with propofol per our nurse shingles roofer helper. A digital rectal exam was performed and he has excellent sphincter tone. Good perianal hygiene. Really not much of anything in the way of external hemorrhoid tissue. Prostate is a little indurated, but not overly enlarged. The adult colonoscope had been introduced and advanced around into the cecum without difficulty. His prep was good. We could easily see the appendiceal orifice and the ileocecal valve. The scope was then slowly withdrawn. We took pictures throughout for photodocumentation. He has just a few tiny diverticula in the sigmoid colon. We found a very tiny 4 mm polyp at 7 cm in the rectum. It was easily removed with the help of hot biopsy forceps. Upon retroflexion of the scope, we can see that he has minimal internal hemorrhoid tissue. We saw no inflammatory changes throughout the entire colon. After this, the gas was suctioned out and the colonoscope removed. Sandy tolerated the procedure quite well. RECOMMENDATIONS: I will see Sandy back in my office in 7 to 14 days to review his results. I suspect he will be on the five year plan mainly due to his paternal grandfather having colon cancer. Sandy Arora MD ALB/MODL /[id number] cc: MD Michelle Aponte PA-C Copies: SANDY ARORA MD Electronically Signed By: SANDY ARORA MD 12/03/21 0924 PATIENT NAME: ZANDER TEE OPERATIVE REPORT DATE OF : 61 REPORT #: [id number] PHYSICIAN: SANDY ARORA MD PCP: MICHELLE ANTONIO PAC REPORT IS CONFIDENTIAL AND NOT TO BE RELEASED WITHOUT AUTHORIZATION [address] [place], [place] [address] Signed MICHELLE ANTONIO ~ Electronically Signed By: SANDY ARORA MD 12/03/21 0924 PATIENT NAME: ZANDER TEE SANDY OPERATIVE REPORT DATE OF : 61 REPORT #: [id number] PHYSICIAN: SANDY ARORA MD PCP: MICHELLE ANTONIO REPORT IS CONFIDENTIAL AND NOT TO BE RELEASED WITHOUT AUTHORIZATION
--- NOTE | 2021-12-04 17:10 | PATH ---
[facility] [address] [place], [place] [address] Signed SPECIMEN(S): A RECTAL POLYP SPECIMEN SOURCE: A. RECTAL POLYP CLINICAL HISTORY: Colonoscopy. Diverticulosis, hemorrhoids, family history of colon CA. Postop: Minimal diverticulosis, minimal hemorrhoids, rectal polyp. FINAL PATHOLOGIC DIAGNOSIS: Rectum, polypectomy: - Hyperplastic polyp. BRP:cml:C2NR MICROSCOPIC EXAMINATION: Histologic sections of all submitted blocks are examined by light microscopy. These findings, together with the gross examination, support the pathologic diagnosis. GROSS DESCRIPTION: The specimen, labeled "TG, 1," and designated on the requisition "rectal colon polyp at 7 cm," is received in formalin and consists of one kiser soft tissue fragment that measures 0.3 cm in greatest dimension. The specimen is entirely submitted in cassette (A1). AT (under the direct supervision of a pathologist) The Gross Description was prepared using a voice recognition system. The report was reviewed for accuracy; however, sound-alike word errors, addition and/or deletions may occur. If there is any question about this report, please contact Client Services. PERFORMING LABORATORY: The technical component was performed by [employer], [address] [place] [id number] (School Principal: Ciarra Spring MD; CLIA# [id number]). Professional interpretation was performed by [employer], [facility], [address] [address] (CLIA# [id number]). Diagnostician: Robe Marcano MD Pathologist Electronically Signed 12/04/2021 PATIENT NAME: ZANDER TEE PATHOLOGY DATE OF : 61 REPORT #: [id number] PHYSICIAN: VERO LANGE PCP: SHYLA ANTONIO REPORT IS CONFIDENTIAL AND NOT TO BE RELEASED WITHOUT AUTHORIZATION [address] [place] [address] Signed Copies: ~ PATIENT NAME: ZANDER TEE PATHOLOGY DATE OF : 61 REPORT #: [id number] PHYSICIAN: VERO PATHOLOGY PCP: SHYLA ANTONIO PAC REPORT IS CONFIDENTIAL AND NOT TO BE RELEASED WITHOUT AUTHORIZATION
== END 2021-12-03 08:40 | disposition home or self-care (01) ==
LOC: OPS 05:40 → DS 05:40 → OPS 07:00 → DS 07:00 → OPS 08:40
PROVIDERS: ATTEND Colon & Rectal Surgery
PROC: 0DBP8ZX Excision of Rectum, Via Natural or Artificial Opening Endoscopic, Diagnostic (ICD-10-PCS; principal; 2021-12-03 06:45)
DX: K62.1 Rectal polyp (principal); K57.30 Diverticulosis of large intestine without perforation or abscess without bleeding; K64.8 Other hemorrhoids; N18.30 Chronic kidney disease, stage 3 unspecified; K64.0 First degree hemorrhoids; K22.70 Barrett's esophagus without dysplasia; Z80.0 Family history of malignant neoplasm of digestive organs; Z88.8 Allergy status to other drugs, medicaments and biological substances; Z88.6 Allergy status to analgesic agent
CPT/HCPCS: J2001; J2704; J7121